=== PATIENT | male | born 1955 | race Caucasian/White ===

== ENCOUNTER 2023-01-16 09:33 | Outpatient (CLI) | payer MEDICARE ==
[2023-01-16 14:25] LABS: BASOPHILS # (AUTO) 0.1 10^3/uL (0.0-0.1); BASOPHILS % (AUTO) 0.9 %; EOSINOPHILS # (AUTO) 0.1 10^3/uL (0.0-0.7); EOSINOPHILS % (AUTO) 1.7 %; HCT - HEMATOCRIT 44.2 % (42.0-52.0); HGB - HEMOGLOBIN 15.2 g/dL (14.0-18.0); LYMPHOCYTES # (AUTO) 1.8 10^3/uL (1.5-3.5); LYMPHOCYTES % (AUTO) 33.7 %; MEAN CORPUSCULAR HEMOGLOBIN 31.4 pg (27.0-31.0); MEAN CORPUSCULAR HGB CONC 34.4 g/dL (32.0-36.0); MEAN CORPUSCULAR VOLUME 91.3 fL (80.0-94.0); MEAN PLATELET VOLUME 9.9 fL (7.4-11.4); MONOCYTES # (AUTO) 0.6 10^3/uL (0.0-1.0); MONOCYTES % (AUTO) 11.5 %; NEUTROPHILS # (AUTO) 2.8 10^3/uL (1.5-6.6); PLT - PLATELET COUNT 155 10^3/uL (130-450); RED BLOOD COUNT 4.84 10^6/uL (4.70-6.10); RED CELL DISTRIBUTION WIDTH 12.1 % (12.0-15.0); WHITE BLOOD COUNT 5.3 x10^3/uL (4.8-10.8)
[2023-01-16 14:57] LABS: ALBUMIN 4.6 g/dL (3.2-5.5); ALBUMIN/GLOBULIN RATIO 1.5 (1.0-2.2); ALKALINE PHOSPHATASE 107 IU/L (42-121); ALT ALANINE AMINOTRANSFERASE 36 IU/L (10-60); AST ASPARTATE AMINOTRANSFERASE 29 IU/L (10-42); BILIRUBIN,TOTAL 0.8 mg/dL (0.2-1.0); BUN - BLOOD UREA NITROGEN 24 mg/dL (6-20); CALCIUM 9.1 mg/dL (8.5-10.3); CARBON DIOXIDE - CO2 27 mmol/L (21-32); CHLORIDE 108 mmol/L (101-111); CHOL/HDL RATIO 3.2 (<5.0); CHOLESTEROL 123 mg/dL; CREATININE 0.8 mg/dL (0.6-1.2); GFR - MDRD 96 (>89); GLUCOSE 109 mg/dL (70-100); HDL CHOLESTEROL 39 mg/dL; LDL CHOLESTEROL,CALCULATED 74 mg/dL; LDL/HDL RATIO 1.9 (<3.6); POTASSIUM 4.4 mmol/L (3.5-5.0); SODIUM 142 mmol/L (135-145); TOTAL PROTEIN 7.7 g/dL (6.7-8.2); TRIGLYCERIDES 48 mg/dL; VLDL CHOLESTEROL 10 mg/dL
[2023-01-17 16:05] LABS: ESTIMATED AVERAGE GLUCOSE 114 mg/dL (70-100); HEMOGLOBIN A1c% 5.6 % (4.27-6.07)
== END 2023-01-16 09:34 | disposition home or self-care (01) ==
LOC: LAB.S 09:33
PROVIDERS: ATTEND Nurse Practitioner Acute Care
DX: E11.9 Type 2 diabetes mellitus without complications (principal); Z13.228 Encounter for screening for other metabolic disorders; Z13.220 Encounter for screening for lipoid disorders; Z13.29 Encounter for screening for other suspected endocrine disorder; Z13.0 Encounter for screening for diseases of the blood and blood-forming organs and certain disorders involving the immune mechanism
CPT/HCPCS: 36415; 80053; 80061; 83036; 83721; 84443; 85025

== ENCOUNTER 2023-09-23 09:08 | Emergency (ER) | payer MEDICARE ==
--- NOTE | 2023-09-23 09:18 | ED Physician Documentation ---
PD HPI CHEST PAIN - Stated complaint Stated Complaint: CHEST PX - History obtained from History obtained from: Patient - History of Present Illness Timing - onset: How many hours ago (2-3) Timing - onset during: Sleep, Rest Timing - duration: Hours Timing - details: Abrupt onset, Still present Quality: Pressure, Tightness, Pain Location: Left chest Radiation: Neck, Left upper extremity Improved by: Rest Worsened by: Exertion (Patient has had exertional chest pain and dyspnea for the last 2 to 3 weeks new onset. It occurs with light activity and better with rest. This morning he awoke with the chest pain that was consistent and has re mained over the last 2 to 3 hours.) Associated symptoms: Shortness of air. No: Nausea, Feeling faint / dizzy Similar symptoms before: Has not had sx before Recently seen: Clinic (routine office visit month ago without CP symptoms at that time.) Review of Systems Constitutional: denies: Fever, Chills Nose: denies: Rhinorrhea / runny nose, Congestion Throat: denies: Sore throat Cardiac: reports: Chest pain / pressure (with minimal exertion the past 2-3 weeks.) Respiratory: denies: Cough Musculoskeletal: denies: Extremity swelling PD PAST MEDICAL HISTORY - Past Medical History Cardiovascular: Hypertension, High cholesterol Respiratory: None Endocrine/Autoimmune: None - Allergies Allergies/Adverse Reactions: Allergies Allergy/AdvReac Type Severity Reaction Status Date / Time No Known Drug Allergies Allergy Verified 09/23/23 09:21 PD ED PE NORMAL - Vitals Vital signs reviewed: Yes - General General: Alert and oriented X 3, Well developed/nourished, Other (appears moderately uncomfortable.) - Neck Neck: Supple, no meningeal sign, No adenopathy - Cardiac Cardiac: RRR, No murmur - Respiratory Respiratory: No respiratory distress, Clear bilaterally - Abdomen Abdomen: Soft, Non tender - Extremities Extremities: No edema, No calf tenderness / cord - Neuro Neuro: Alert and oriented X 3, No motor deficit, Normal speech Results - Vitals Vitals: Vital Signs - 24 hr 09/23/23 09:17 Temperature 36.7 C Heart Rate 93 Respiratory 15 Rate Blood Pressure 190/82 H O2 Saturation 97 Oxygen O2 Source Room air - EKG (time done) triage EKG releavant findings:: EKG personally interpreted by author of this note. Relevant findings are: Rhythm: NSR [place]: Normal Ischemia: ST elevation c/w ischemia (aVR, V1), ST depression (diffusely a nterolateral significant ST depression. ) - Labs Labs: Laboratory Tests 09/23/23 09/23/23 09/23/23 09:27 09:27 10:04 WBC 5.2 RBC 5.04 Hgb 15.6 Hct 46.1 MCV 91.5 MCH 31.0 MCHC 33.8 RDW 12.1 Plt Count 155 MPV 9.4 Neut # (Auto) 3.3 Lymph # (Auto) 1.4 L Gordon # (Auto) 0.4 Eos # (Auto) 0.1 Baso # (Auto) 0.0 Absolute Nucleated RBC 0.00 Nucleated RBC % 0.0 Sodium 138 Potassium 4.3 Chloride 104 Carbon Dioxide 26 Anion Gap 8.0 BUN 24 H Creatinine 0.9 Estimated GFR (MDRD) 84 L Glucose 192 H Calcium 9.4 Magnesium 1.6 L Total Bilirubin 0.4 AST 23 ALT 34 Alkaline Phosphatase 128 H Troponin I High Sens 384.3 H* Total Protein 6.9 Albumin 4.5 Globulin 2.4 Albumin/Globulin Ratio 1.9 Lipase 33 SARS-CoV-2 (PCR) NOT DETECTED - Rads (name of study) chest xray Relevant Findings:: EMP independent interpretation of test (normal heart size, no CHF/edema, no effusions. ) PD Medical Decision Making - ED course Complexity details: considered differential (Patient with exertional angina with minimal activity over the last couple of weeks that has crescendoed. Now consistent pain at rest this morning for the last 2 [address] elevations in aVR and V1 and diffuse ischemic changes ST depressions otherwise. Consistent with STEMI.), d/w patient, d/w client service consultant (I talked with the emergency physician, Dr. Juarez, at [facility] who concurs in having the patient transferred acutely for intervention.) ED course: The decision for transfer based on STEMI concerns was decided at [phone]. The airlift is just landing from a prior flight and needs to change crew quickly. They will come into us they estimate in 15 minutes. We did fax the EKG over to [facility] and they will be reportedly alerted in the [employer]. We will notify them when the patient lifts off. - Critical Care Time(min): 40 Time Includes: Direct patient care, Document care, Medical consult Data interpretation: Labs, Pulse ox, CXR Procedures excluded from critical care time: EKG Departure - Departure Disposition: 02 Transfer Acute Care Hosp Clinical Impression: Chest pain, STEMI (ST elevation myocardial infarction) Condition: Stable Record reviewed to determine appropriate education?: Yes Forms: PCP List Discharge Date/Time: 09/23/23 10:20
[2023-09-23 09:28] VITALS: BP 190/82; O2SAT 97
[2023-09-23] MEDS ORDERED: NITROGLYCERIN SL 0.4 MG TABLET SL STA (09:32)
[2023-09-23] MEDS ORDERED: METOPROLOL 5 MG/5 ML VIAL IVP STA (09:32)
[2023-09-23] MEDS ORDERED: ASPIRIN CHEW 81 MG TABLET PO STA (09:32)
[2023-09-23] MEDS ORDERED: CLOPIDOGREL 300 MG TABLET PO STA (09:33)
[2023-09-23 09:41] LABS: BASOPHILS % (AUTO) 0.6 %; EOSINOPHILS # (AUTO) 0.1 10^3/uL (0.0-0.7); EOSINOPHILS % (AUTO) 1.5 %; HCT - HEMATOCRIT 46.1 % (42.0-52.0); HGB - HEMOGLOBIN 15.6 g/dL (14.0-18.0); LYMPHOCYTES # (AUTO) 1.4 10^3/uL (1.5-3.5); LYMPHOCYTES % (AUTO) 26.2 %; MEAN CORPUSCULAR HGB CONC 33.8 g/dL (32.0-36.0); MEAN CORPUSCULAR VOLUME 91.5 fL (80.0-94.0); MEAN PLATELET VOLUME 9.4 fL (7.4-11.4); MONOCYTES # (AUTO) 0.4 10^3/uL (0.0-1.0); MONOCYTES % (AUTO) 7.7 %; NEUTROPHILS # (AUTO) 3.3 10^3/uL (1.5-6.6); NEUTROPHILS % (AUTO) 63.8 %; PLT - PLATELET COUNT 155 10^3/uL (130-450); RED BLOOD COUNT 5.04 10^6/uL (4.70-6.10); RED CELL DISTRIBUTION WIDTH 12.1 % (12.0-15.0); WHITE BLOOD COUNT 5.2 x10^3/uL (4.8-10.8)
[2023-09-23] MEDS ORDERED: MORPHINE 2 MG/ML CARPUJECT IVP STA (09:49)
[2023-09-23 09:53] LABS: ALBUMIN 4.5 g/dL (3.2-5.5); ALBUMIN/GLOBULIN RATIO 1.9 (1.0-2.2); BILIRUBIN,TOTAL 0.4 mg/dL (0.2-1.0); CALCIUM 9.4 mg/dL (8.5-10.3); CREATININE 0.9 mg/dL (0.6-1.3); MAGNESIUM 1.6 mg/dL (1.7-2.3); POTASSIUM 4.3 mmol/L (3.5-4.5); TOTAL PROTEIN 6.9 g/dL (6.4-8.9)
[2023-09-23 09:57] LABS: TROPONIN I HIGH SENSITIVITY 384.3 ng/L (2.3-19.7)
[2023-09-23] MEDS ORDERED: HEPARIN 25000UNITS/500ML (D5W) 25,000 UNIT/500 ML BAG IV SCH (10:00)
--- NOTE | 2023-09-23 11:48 | XRAY Report ---
PROCEDURE: Chest 1V INDICATIONS: Chest Pain TECHNIQUE: One view of the chest was acquired. COMPARISON: None FINDINGS: Surgical changes and devices: None. Lungs and pleura: No pleural effusions or pneumothorax. Lungs are clear. Mediastinum: Mediastinal contours appear normal. Heart size is normal. Bones and chest wall: No suspicious bony lesions. Overlying soft tissues appear unremarkable. IMPRESSION: No acute cardiopulmonary findings Reviewed by: Francisco Marie MD on 09/23/2023 10:47 AM [facility] Approved by: Francisco Marie MD on 09/23/2023 10:47 AM [facility] Station ID: [id number]
== END 2023-09-23 10:20 | disposition short-term general hospital (02) ==
LOC: ED 09:08
DX: I21.3 ST elevation (STEMI) myocardial infarction of unspecified site (principal); I10 Essential (primary) hypertension
CPT/HCPCS: 36415; 71045; 80053; 83690; 83735; 84484; 85025; 87635; 93005; 96374; 96375; 99285; 99291; A9270

== ENCOUNTER 2023-11-27 08:39 | Outpatient (CLI) | payer MEDICARE ==
[2023-11-27 15:09] LABS: ESTIMATED AVERAGE GLUCOSE 114 mg/dL (70-100); HEMOGLOBIN A1c% 5.6 % (4.27-6.07)
== END 2023-11-27 08:40 | disposition home or self-care (01) ==
LOC: LAB.S 08:39
PROVIDERS: ATTEND Nurse Practitioner Acute Care
DX: Z13.1 Encounter for screening for diabetes mellitus (principal)
CPT/HCPCS: 36415; 83036

== ENCOUNTER 2023-12-31 08:26 | Outpatient (CLI) | payer MEDICARE ==
[2023-12-31 15:20] LABS: BASOPHILS % (AUTO) 0.8 %; EOSINOPHILS # (AUTO) 0.1 10^3/uL (0.0-0.7); HCT - HEMATOCRIT 44.9 % (42.0-52.0); HGB - HEMOGLOBIN 14.4 g/dL (14.0-18.0); LYMPHOCYTES # (AUTO) 1.5 10^3/uL (1.5-3.5); LYMPHOCYTES % (AUTO) 29.1 %; MEAN CORPUSCULAR HEMOGLOBIN 30.5 pg (27.0-31.0); MEAN CORPUSCULAR HGB CONC 32.1 g/dL (32.0-36.0); MEAN CORPUSCULAR VOLUME 95.1 fL (80.0-94.0); MEAN PLATELET VOLUME 9.9 fL (7.4-11.4); MONOCYTES # (AUTO) 0.5 10^3/uL (0.0-1.0); MONOCYTES % (AUTO) 10.4 %; NEUTROPHILS # (AUTO) 2.9 10^3/uL (1.5-6.6); NEUTROPHILS % (AUTO) 57.5 %; PLT - PLATELET COUNT 162 10^3/uL (130-450); RED BLOOD COUNT 4.72 10^6/uL (4.70-6.10); RED CELL DISTRIBUTION WIDTH 12.5 % (12.0-15.0)
[2023-12-31 15:38] LABS: ALBUMIN 4.7 g/dL (3.2-5.5); ALBUMIN/GLOBULIN RATIO 2.1 (1.0-2.2); ALKALINE PHOSPHATASE 108 IU/L (42-121); ALT ALANINE AMINOTRANSFERASE 27 IU/L (10-60); AST ASPARTATE AMINOTRANSFERASE 22 IU/L (10-42); BILIRUBIN,TOTAL 0.7 mg/dL (0.2-1.0); BUN - BLOOD UREA NITROGEN 25 mg/dL (6-20); CALCIUM 9.7 mg/dL (8.5-10.3); CARBON DIOXIDE - CO2 28 mmol/L (21-32); CHLORIDE 106 mmol/L (101-111); CHOL/HDL RATIO 3.4 (<5.0); CHOLESTEROL 110 mg/dL; CREATININE 0.8 mg/dL (0.6-1.3); GFR - MDRD 96 (>89); GLUCOSE 108 mg/dL (74-104); HDL CHOLESTEROL 32 mg/dL; LDL CHOLESTEROL,CALCULATED 58 mg/dL; LDL/HDL RATIO 1.8 (<3.6); POTASSIUM 4.6 mmol/L (3.5-4.5); SODIUM 141 mmol/L (135-145); TOTAL PROTEIN 6.9 g/dL (6.4-8.9); TRIGLYCERIDES 99 mg/dL (48-352); VLDL CHOLESTEROL 20 mg/dL
== END 2023-12-31 08:27 | disposition home or self-care (01) ==
LOC: LAB.S 08:26
PROVIDERS: ATTEND Nurse Practitioner Acute Care
DX: Z13.228 Encounter for screening for other metabolic disorders (principal); Z13.220 Encounter for screening for lipoid disorders; Z13.0 Encounter for screening for diseases of the blood and blood-forming organs and certain disorders involving the immune mechanism
CPT/HCPCS: 36415; 80053; 80061; 83721; 85025

== ENCOUNTER 2024-04-14 09:27 | Outpatient (CLI) | payer MEDICARE ==
[2024-04-14 15:22] LABS: CREATININE,URINE 126.4 mg/dL; MICROALBUM/CREATININE RATIO,UR 7.1 ug/mg (<30.0); MICROALBUMIN,URINE 0.9 mg/dL
[2024-04-14 19:53] LABS: ESTIMATED AVERAGE GLUCOSE 111 mg/dL (70-100); HEMOGLOBIN A1c% 5.5 % (4.27-6.07)
== END 2024-04-14 09:28 | disposition home or self-care (01) ==
LOC: LAB.S 09:27
PROVIDERS: ATTEND Nurse Practitioner Acute Care
DX: E11.9 Type 2 diabetes mellitus without complications (principal); Z12.11 Encounter for screening for malignant neoplasm of colon; Z13.1 Encounter for screening for diabetes mellitus
CPT/HCPCS: 36415; 82043; 82570; 83036; 84153

== ENCOUNTER 2024-05-08 07:06 | Day surgery (SDC) | payer MEDICARE ==
--- NOTE | 2024-05-08 06:53 | ANESTHESIA ---
Pre-Anesthesia VS, & Labs - Diagnosis L senile combined cataract - Procedure L extraction cataract with IOL Height: 5 ft 7 in - NPO >8 hours - Lab Results Lab results reviewed: Yes Home Medications and Allergies Home Medications: Ambulatory Orders Aspirin [[place]] 81 mg PO DAILY 05/08/24 Atorvastatin Calcium 40 mg PO DAILY 05/08/24 Clopidogrel [Plavix] 75 mg PO ONCE 05/08/24 Losartan Potassium 25 mg PO DAILY 05/08/24 Metoprolol Tartrate [Lopressor] 50 mg PO ONCE 05/08/24 metFORMIN [Glucophage] 500 mg PO BID 05/08/24 Allergies/Adverse Reactions: Allergies Allergy/AdvReac Type Severity Reaction Status Date / Time No Known Drug Allergies Allergy Verified 09/23/23 09:21 Anes History & Medical History - Anesthetic History Anesthesia Complications: reports: No previous complications Family history of Anesthesia Complications: Denies Family history of Malignant Hyperthermia: Denies - Medical History Cardiovascular: reports: Hypertension, High cholesterol, Coronary artery disease, [place] Pulmonary: reports: None Endocrine/Autoimmune: reports: Type 2 diabetes Smoking Status: Never smoker - Surgical History Eyes Ears Nose Throat (EENT): reports: Cataracts Cardiothoracic: reports: Coronary stent Dermatologic: reports: Skin cancer surgery Exam General: Alert, Oriented x3, Cooperative Dental: WNL, Other (bridgework) Mouth Openin Fingerbreadth Neck Mobility: Normal Mallampati classification: II Thyromental Distance: 4-6 cm Respiratory: Lungs clear Cardiovascular: Regular rate Neurological: Normal speech Mental/Cognitive Status: Alert/Oriented X3, Normal for patient Cognitive Status: Within normal limits Plan Anesthesia Type: MAC Consent for Procedure(s) Verified and Reviewed: Yes Code Status: Attempt Resuscitation ASA classification: 3-Severe systemic disease Is this case an emergency?: No
[2024-05-08] MEDS: LACTATED RINGERS 1,000 ML IV ONE (07:10)
[2024-05-08] MEDS: PHENYLEPHRINE 2.5% OPHTH 2 ML DROPS ONE (07:26)
[2024-05-08] MEDS: KETOROLAC TROMETHAMINE 0.5% OPHTH DROPS 5 ML ONE (07:26)
[2024-05-08] MEDS: CYCLOPENTOLATE 1% OPHTH DROPS 2 ML ONE (07:26)
[2024-05-08] MEDS: PROPARACAINE 0.5% OPHTH DROPS 15 ML ONE (07:26)
[2024-05-08] MEDS ORDERED: MIDAZOLAM 2 MG/2 ML VIAL ONE (08:14)
[2024-05-08] MEDS ORDERED: BRIMONIDINE 0.2% OPHTH DROPS 5 ML ONE (08:16)
[2024-05-08] MEDS ORDERED: TIMOLOL 0.5% OPHTH DROPS ONE (08:16)
[2024-05-08] MEDS ORDERED: BSS/LIDOCAINE/EPINEPHRINE 1 ML VIAL ONE (08:16)
[2024-05-08] MEDS ORDERED: TRIAMCIN/MOXIFLOX OPHTHALMIC 0.6 ML VIAL IO ONE (08:16)
[2024-05-08] MEDS ORDERED: EPINEPHrine 1 MG/ML AMP ONE (08:16)
[2024-05-08] MEDS: TIMOLOL 0.5% OPHTH DROPS OPTH ONE (09:00)
[2024-05-08] MEDS: PROPARACAINE 0.5% OPHTH DROPS 15 ML LEFTEYE ONE (09:00)
[2024-05-08] MEDS: EPINEPHrine 1 MG/ML AMP IR ONE (09:00)
[2024-05-08] MEDS: BRIMONIDINE 0.2% OPHTH DROPS 5 ML OPTH ONE (09:00)
[2024-05-08] MEDS: TRIAMCIN/MOXIFLOX OPHTHALMIC 0.6 ML VIAL IO ONE (09:00)
[2024-05-08] MEDS: BSS/LIDOCAINE/EPINEPHRINE 1 ML SYRINGE IO ONE (09:00)
[2024-05-08] MEDS: VANCOMYCIN OPHTH (TOPICAL) 10 MG/ML SYRINGE TOP ONE (09:01)
[2024-05-08] MEDS: LACTATED RINGERS 900 ML IV ONE (09:11)
--- NOTE | 2024-05-08 09:16 | OPERATIVE REPORT ---
Operative Report - Other Other Information/Narrative: Date of Surgery: 05/08/24 Preop Dx: Visually significant cataract left eye. This was the first cataract surgery. Postop Dx: Same Procedure: Phacoemulsification with posterior chamber intraocular lens implant left eye Surgeon: Dr. Hakan Lewis Anesthesia: Monitored anesthesia care Complications: None Operative Indications: This is a 69-year-old M with progressive vision loss in the left eye due to 3+ nuclear sclerotic, 1-2+ cortical, and 1+ posterior subcapsular cataract. Best corrected visual acuity was 20/100 with glare to 20/500 vision in the left eye. Indications for surgery were: - Overall decrease in vision - Difficulty seeing words on a computer screen - Difficulty reading - Difficulty seeing words, closed captions, or game scores on TV - Difficulty seeing street signs - Difficulty with glare or bright lights in any situation The patient was consented at length concerning the risks and benefits of cataract surgery after which the patient expressed a desire to proceed with surgery. Operative Procedure: The patient was taken into OR#3 and placed under monitored anesthesia care. A surgical time-out was conducted confirming correct patient, correct procedure, and correct surgical site. The patient was given topical anesthesia and then prepped and draped in the usual sterile fashion. The eye was entered at the 6 and 3 oclock positions. Intracameral Shugarcaine was injected into the anterior chamber followed by a dispersive viscoelastic. A continuous-tear curvilinear capsulorhexis was performed. The nucleus was hydrodissected and phacoemulsified. The cortex was evacuated using automated infusion and aspiration. A cohesive viscoelastic was injected into the capsular bag and a 16.5 diopter intraocular lens was inserted into the bag. Infusion and aspiration were used to evacuate the viscoelastic materials from the eye. The wounds were hydrated and the eye inflated to physiologic pressure using balanced salt solution. Approximately 0.25ml of a mixture of triamcinolone and moxifloxacin was injected trans-sclerally into the vitreous in the inferotem poral quadrant using a 30 gauge cannula. An additional 0.25ml of a mixture of triamcinolone and moxifloxacin was injected subconjunctivally in the superior quadrant for infection and inflammation prophylaxis. Wound integrity was checked with Weck-Alyssa sponges. The patient was taken from the operating room in good condition and given post-op instructions.
--- NOTE | 2024-05-08 09:25 | ANESTHESIA POST OP EVALUATION ---
Anesthesia Post Eval - Post Anesthesia Eval Vitals: Last Vital Signs Temp 36.5 C 05/08/24 09:11 Pulse 58 L 05/08/24 09:20 Resp 16 05/08/24 09:20 BP 134/69 H 05/08/24 09:20 Pulse Ox 98 05/08/24 09:20 O2 Flow Rate CV Function Including HR & BP: Stable Pain Control: Satisfactory Nausea & Vomiting: Negative Mental Status: Baseline Respiratory Status: Airway Patent Hydration Status: Satisfactory Anesthesia Complications: None
[2024-05-08 09:26] VITALS: BP 134/69; O2SAT 98
== END 2024-05-08 07:07 | disposition home or self-care (01) ==
LOC: SDS 07:06
PROVIDERS: ATTEND Ophthalmology
DX: H25.812 Combined forms of age-related cataract, left eye (principal); I10 Essential (primary) hypertension; E11.9 Type 2 diabetes mellitus without complications; E78.00 Pure hypercholesterolemia, unspecified; I25.10 Atherosclerotic heart disease of native coronary artery without angina pectoris; Z79.82 Long term (current) use of aspirin; Z95.5 Presence of coronary angioplasty implant and graft; I25.2 Old myocardial infarction; Z79.84 Long term (current) use of oral hypoglycemic drugs
CPT/HCPCS: 66984; A9270; J3490; J7120